=== PATIENT | male | born 1995 | race Caucasian/White ===

== ENCOUNTER 2019-03-04 22:02 | Observation (INO) | payer OTHER ==
[~2019-03-04] VITALS: Ht 170.2 cm; Wt 127.1 kg
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
[2019-03-04 23:32] LABS: WHITE BLOOD COUNT 9.6 10^3/uL (4.3-11.0)
[2019-03-04 23:33] LABS: HEMATOCRIT 47 % (40-54); HEMOGLOBIN 16.2 G/DL (13.3-17.7); MEAN CORPUSCULAR HEMOGLOBIN 30 PG (25-34); MEAN CORPUSCULAR HGB CONC 35 G/DL (32-36); MEAN CORPUSCULAR VOLUME 86 FL (80-99); MEAN PLATELET VOLUME 9.4 FL (7.4-10.4); PLATELET COUNT 255 10^3/uL (130-400); RED CELL DISTRIBUTION WIDTH 13.2 % (10.0-14.5)
[2019-03-04 23:34] LABS: NEUTROPHILS % (AUTO) 51 % (42-75)
[2019-03-04 23:35] LABS: BASOPHILS % (AUTO) 0 % (0-10); EOSINOPHILS # (AUTO) 0.2 10^3/uL (0.0-0.3); EOSINOPHILS % (AUTO) 3 % (0-10); LYMPHOCYTES # (AUTO) 3.6 X 10^3 (1.0-4.0); LYMPHOCYTES % (AUTO) 37 % (12-44); MONOCYTES # (AUTO) 0.9 X 10^3 (0.0-1.0); MONOCYTES % (AUTO) 9 % (0-12); NEUTROPHILS # (AUTO) 4.9 X 10^3 (1.8-7.8)
[2019-03-04 23:39] LABS: BACTERIA,URINE NEGATIVE /HPF; BILIRUBIN,URINE NEGATIVE (NEGATIVE); CLARITY,URINE CLEAR; COLOR,URINE YELLOW; GLUCOSE, URINE (UA) NEGATIVE (NEGATIVE); KETONES,URINE NEGATIVE (NEGATIVE); LEUKOCYTE ESTERASE ,URINE NEGATIVE (NEGATIVE); NITRITE,URINE NEGATIVE (NEGATIVE); PROTEIN,URINE NEGATIVE (NEGATIVE); RBC,URINE 0-2 /HPF; SQUAMOUS EPITHELIAL CELL,UR 0-2 /HPF; UROBILINOGEN,URINE 0.2 MG/DL (NORMAL); WBC,URINE 0-2 /HPF
--- NOTE | 2019-03-04 23:48 | ED Abdominal Pain ---
General Chief Complaint: Abdominal/GI Problems Stated Complaint: ABDOMINAL PAIN Nursing Triage Note: Pt has had abdominal pain since tonight at 1800. Pt stated that it is localized in RUQ/middle upper abdomen that radiates around back to left side. Pt stated he had diarrhea stool this morning, but he thinks that it is related to the drinks he had last night. Pt was alert, oriented and ambulatory at arrival. Sepsis Screen: No Definite Risk Source of Information: Patient History of Present Illness Date Seen by Provider: Mar 04, 2019 Time Seen by Provider: 23:41 Initial Comments 24-year-old male presenting with right-sided abdominal pain. He states that he had similar pain approximately 6-8 months ago and was evaluated. At that time he had labs, CT scan, ultrasound and was told he had gallstones. His pain was finally under control and he was told that he did not need to have his gallbladder out unless he had recurrent symptoms. He has been doing fine until today. He had been drinking alcohol last night and had some diarrhea this morning. He had eaten pizza at lunch time and then had chicken with a salad around 5 PM after all this he started having severe epigastric and right upper quadrant abdominal pain. This is radiating to his right shoulder and upper back. He has had nausea as well. He can not get comfortable and can not get the pain under control. Severity/Quality: Severe Location: RUQ, Epigastric Radiation: Back, Shoulder Allergies and Home Medications Allergies Coded Allergies: azithromycin (Verified Allergy, Unknown, rash, 03/04/19) Patient Home Medication List Home Medication List Reviewed: Yes Review of Systems Review of Systems Constitutional: No chills, No fever; malaise EENTM: No Symptoms Reported Respiratory: No Symptoms Reported Cardiovascular: No Symptoms Reported Gastrointestinal: See HPI, Abdominal Pain, Diarrhea (liquid stool today after drinking alcohol last night), Nausea; Denies Rectal Bleeding, Denies Vomiting Genitourinary: No Symptoms Reported Musculoskeletal: no symptoms reported Skin: no symptoms reported Psychiatric/Neurological: Anxiety Endocrine: No Symptoms Reported Hematologic/Lymphatic: No Symptoms Reported Past Exqqbno-Yvslfd-Rbdiwg Hx Past Med/Social Hx: Reviewed Nursing Past Med/Soc Hx Patient Social History Alcohol Use: Occasionally Uses Recreational Drug Use: No Smoking Status: Current Everyday Smoker Type Used: Cigarettes 2nd Hand Smoke Exposure: No Recent Foreign Travel: No Contact w/Someone Who Travel: No Recent Infectious Disease Expo: No Recent Hopitalizations: No Physical Abuse: No Sexual Abuse: No Mistreated: No Fear: No Seasonal Allergies Seasonal Allergies: No Past Medical History Surgeries: Yes (wisdom teeth) Respiratory: No Cardiac: No Neurological: No Genitourinary: No Gastrointestinal: No Musculoskeletal: No Endocrine: No HEENT: No Cancer: No Psychosocial: Yes Anxiety Blood Disorders: No Physical Exam Vital Signs Vital Signs - First Documented 03/04/19 23:00 Temp 97.0 Pulse 82 Resp 24 B/P (MAP) 159/104 (122) Pulse Ox 98 O2 Delivery Room Air Capillary Refill : Less Than 3 Seconds Height/Weight/BMI Height: 5'7.00" Weight: 260lbs. 0oz. 117.004445bj; BMI Method:Stated General Appearance: WD/WN, moderate distress, obese HEENT: PERRL/EOMI, normal ENT inspection, pharynx normal Neck: non-tender, full range of motion, supple, normal inspection Respiratory: chest non-tender, lungs clear, normal breath sounds, no respiratory distress, no accessory muscle use Cardiovascular: normal peripheral pulses, regular rate, rhythm Gastrointestinal: normal bowel sounds, soft, no pulsatile mass, guarding (ruq ) ; No rebound; tenderness (ruq with positive Gil's sign); No mass Rectal: deferred Extremities: normal range of motion, non-tender, normal inspection Neurologic/Psychiatric: alert, oriented x 3, other (anxious) Skin: normal color, warm/dry Progress/Results/Core Measures Results/Orders Lab Results Laboratory Tests Test 03/04/19 23:25 Range/Units White Blood Count 9.6 4.3-11.0 10^3/uL Red Blood Count 5.42 4.35-5.85 10^6/uL Hemoglobin 16.2 13.3-17.7 G/DL Hematocrit 47 40-54 % Mean Corpuscular Volume 86 80-99 FL Mean Corpuscular Hemoglobin 30 25-34 PG Mean Corpuscular Hemoglobin Concent 35 32-36 G/DL Red Cell Distribution Width 13.2 10.0-14.5 % Platelet Count 255 130-400 10^3/uL Mean Platelet Volume 9.4 7.4-10.4 FL Neutrophils (%) (Auto) 51 42-75 % Lymphocytes (%) (Auto) 37 12-44 % Monocytes (%) (Auto) 9 0-12 % Eosinophils (%) (Auto) 3 0-10 % Basophils (%) (Auto) 0 0-10 % Neutrophils # (Auto) 4.9 1.8-7.8 X 10^3 Lymphocytes # (Auto) 3.6 1.0-4.0 X 10^3 Monocytes # (Auto) 0.9 0.0-1.0 X 10^3 Eosinophils # (Auto) 0.2 0.0-0.3 10^3/uL Basophils # (Auto) 0.0 0.0-0.1 10^3/uL Urine Color YELLOW Urine Clarity CLEAR Urine pH 6.0 5-9 Urine Specific [place] 1.020 1.016-1.022 Urine Protein NEGATIVE NEGATIVE Urine Glucose (UA) NEGATIVE NEGATIVE Urine Ketones NEGATIVE NEGATIVE Urine Nitrite NEGATIVE NEGATIVE Urine Bilirubin NEGATIVE NEGATIVE Urine Urobilinogen 0.2 NORMAL MG/DL Urine Leukocyte Esterase NEGATIVE NEGATIVE Urine RBC (Auto) NEGATIVE NEGATIVE Urine RBC 0-2 /HPF Urine WBC 0-2 /HPF Urine Squamous Epithelial Cells 0-2 /HPF Urine Crystals NONE /LPF Urine Bacteria NEGATIVE /HPF Urine Casts NONE /LPF Urine Mucus NONE /LPF Urine Culture Indicated NO Sodium Level 141 135-145 MMOL/L Potassium Level 3.7 3.6-5.0 MMOL/L Chloride Level 102 98-107 MMOL/L Carbon Dioxide Level 18 L 21-32 MMOL/L Anion Gap 21 H 5-14 MMOL/L Blood Urea Nitrogen 15 7-18 MG/DL Creatinine 0.81 0.60-1.30 MG/DL Estimat Glomerular Filtration Rate > 60 BUN/Creatinine Ratio 19 Glucose Level 98 70-105 MG/DL Calcium Level 9.5 8.5-10.1 MG/DL Corrected Calcium 8.5-10.1 MG/DL Total Bilirubin 0.4 0.1-1.0 MG/DL Aspartate Amino Transf (AST/SGOT) 26 5-34 U/L Alanine Aminotransferase (ALT/SGPT) 53 0-55 U/L Alkaline Phosphatase 51 40-136 U/L Total Protein 7.5 6.4-8.2 GM/DL Albumin 4.7 H 3.2-4.5 GM/DL Lipase 13 8-78 U/L My Orders Allison - CYNDIE العراقي MD Comprehensive Metabolic Panel (03/04/19 23:13) Lipase (03/04/19 23:13) Ua Culture If Indicated (03/04/19 23:13) Saline Lock/Iv-Start (03/04/19 23:13) Cbc With Automated Diff (03/04/19 23:13) Ketorolac Injection (Toradol Injection) (03/05/19 00:00) Ondansetron Injection (Zofran Injectio (03/05/19 00:00) Ns Iv 1000 Ml (Sodium Chloride 0.9%) (03/05/19 00:00) Fentanyl Injection (Sublimaze Injection (03/05/19 00:30) Lorazepam Injection (Ativan Injection) (03/05/19 00:30) Ct Abdomen/Pelvis W (03/05/19 00:24) Iohexol Injection (Omnipaque 350 Mg/Ml 1 (03/05/19 00:30) Ns (Ivpb) (Sodium Chloride 0.9% Ivpb Bag (03/05/19 00:30) Contrast Received (Contrast Received) (03/05/19 00:30) Hydromorphone Injection (Dilaudid Inject (03/05/19 01:45) Ondansetron Injection (Zofran Injectio (03/05/19 02:00) Medications Given in ED Current Medications Medications Dose Ordered Sig/Melina Route Start Time Stop Time Status Last Admin Dose Admin Fentanyl Citrate 50 mcg ONCE ONCE IVP 03/05/19 00:30 03/05/19 00:31 DC 03/05/19 00:39 50 MCG Hydromorphone HCl 1 mg ONCE ONCE IVP 03/05/19 01:45 03/05/19 01:46 DC 03/05/19 01:43 1 MG Iohexol 100 ml ONCE ONCE IV 03/05/19 00:30 03/05/19 00:31 DC 03/05/19 00:43 100 ML Ketorolac Tromethamine 30 mg ONCE ONCE IVP 03/05/19 00:00 03/05/19 00:01 DC 03/04/19 23:58 30 MG Lorazepam 1 mg ONCE ONCE IVP 03/05/19 00:30 03/05/19 00:31 DC 03/05/19 00:39 1 MG Ondansetron HCl 4 mg ONCE ONCE IVP 03/05/19 00:00 03/05/19 00:01 DC 03/04/19 23:58 4 MG Ondansetron HCl 4 mg ONCE ONCE IVP 03/05/19 02:00 03/05/19 03:17 DC 03/05/19 02:05 4 MG Sodium Chloride 50 ml ONCE ONCE IV 03/05/19 00:30 03/05/19 00:31 DC 03/05/19 00:43 50 ML Vital Signs/I&O 03/04/19 23:00 Temp 97.0 Pulse 82 Resp 24 B/P (MAP) 159/104 (122) Pulse Ox 98 O2 Delivery Room Air Blood Pressure Mean: 122 Progress Progress Note #1: Progress Note check labs to look for pancreatitis, hepatitis or signs of infection since he reports similar pains in the fall and was told it was from gallstones. He denies having pain like that until tonight. He had pizza at lunch time without difficulty but then tonight he had a salad and chicken and after supper started having pain. He is also having anxiety. Progress Note #2: Time: 00:15 Progress Note Pt states his pain is still bad and the toradol and zofran have not helped. Will add on Fentanyl 50 mcg and for his anxiety give 1 mg [address] IV. Check CT scan of Abd/Pelvis. His labs all look ok and no elevation of WBC, LFTs or Lipase. Progress Note #3: Time: 01:20 Progress Note No improvement after Fentanyl and still 8/10 pain. Will try Dilaudid and contact Surgery about his symptoms. His CT scan shows gallstones but no pericholecystic fluid or signs of obstruction. Progress Note #4: Time: 01:40 Progress Note Spoke with Dr. Guillen, surgeon conciliator and he accepted the patient for admit. Will transfer to [facility] and have him remain NPO. Continue maintenance fluids and Zofran for nausea, Dilaudid for pain and anticipate surgery later today. Progress Note #5: Time: 03:10 Progress Note Patient waiting on EMS for transport to [place]. He complains of pain starting to increase again. Will repeat Dilaudid 1 mg IV to see if that will calm his symptoms back down for him so that maybe he could rest. Progress Note #6: Time: 04:15 Progress Note EMS available for transport to [facility]. Pt had some improved pain relief after the additional Dilaudid 1 mg but he also did get placed on Oxygen at 1 Lpm by mn to help his oxygen saturation. Diagnostic Imaging Diagonstic Imaging: CT Plain Films/CT/US/NM/MRI: abdomen, pelvis Comments Gallstones in gallbladder without obstruction or pericholecystic fluid. No other acute findings. Reviewed: [facility] ([facility]) Time/Spoke to Admitting Phy: 01:[address] Guillen at 0140 about the admit and he accepted the patient for admission based on findings and continued pain despite repeated pain medicines. Will keep pt NPO and anticipate cholecystectomy later today. Family Conversation Updated pt about plan and treatment. Impression Primary Impression: Cholecystitis, acute with cholelithiasis Qualified Codes: K80.00 - Calculus of gallbladder with acute cholecystitis without obstruction Disposition: ADMITTED INPATIENT Condition: Stable Admissions Decision to Admit Reason: Admit from ER (General) Decision to Admit/Date: Mar 05, 2019 Time/Decision to Admit Time: 01:40 Departure-Patient Inst. Referrals: NO,LOCAL PHYSICIAN (PCP/Family) Primary Care Physician CYNDIE العراقي MD Mar 04, 2019 23:48
[2019-03-04 23:51] LABS: ALANINE AMINOTRANSFERASE 53 U/L (0-55); ALKALINE PHOSPHATASE 51 U/L (40-136); BILIRUBIN,TOTAL 0.4 MG/DL (0.1-1.0); BUN/CREATININE RATIO 19; CALCIUM 9.5 MG/DL (8.5-10.1); CARBON DIOXIDE 18 MMOL/L (21-32); CHLORIDE 102 MMOL/L (98-107); CREATININE SERUM 0.81 MG/DL (0.60-1.30); GFR ESTIMATED > 60; GLUCOSE 98 MG/DL (70-105); POTASSIUM 3.7 MMOL/L (3.6-5.0); SODIUM 141 MMOL/L (135-145)
[2019-03-04 23:52] LABS: ALBUMIN 4.7 GM/DL (3.2-4.5); LIPASE 13 U/L (8-78); TOTAL PROTEIN 7.5 GM/DL (6.4-8.2)
[2019-03-05] MEDS ORDERED: KETOROLAC 30 MG/ML VIAL IVP ONE
[2019-03-05] MEDS ORDERED: LORazepam INJ 2 MG/ML (ATIVAN) VIAL IVP ONE (00:30)
[2019-03-05] MEDS ORDERED: NS 50 ML (IVPB) BAG IV ONE (00:30)
[2019-03-05] MEDS ORDERED: IOHEXOL 350 MG/ML 100 ML (OMNIPAQUE 350) VIAL IV ONE (00:30)
[2019-03-05] MEDS ORDERED: HOLD METFORMIN - RECEIVED CONTRAST 20 ML VIAL IV SCH (00:30)
[2019-03-05] MEDS ORDERED: fentaNYL INJECTION 100 MCG/2 ML AMP IVP ONE ×2 (00:30→01:15)
[2019-03-05] MEDS ORDERED: HYDROmorphone 2 MG/ML VIAL (DILAUDID) IVP ONE ×2 (01:45→03:15)
--- NOTE | 2019-03-05 01:48 | NUR ---
Called House Sup at this time for bed request. Stated he was going to call back with bed assignment.
[2019-03-05] MEDS ORDERED: ONDANSETRON 4 MG/2 ML (SDV) Z0FRAN IVP ONE ×2 (02:00)
--- OUTSIDE RECORDS SUMMARY | 2019-03-05 02:18 | XMS REPORT | Continuity of Care Document ---
[...] R45.851 Suicidal ideations 11/25/2015 TANJIM, SERGIO V [id number] Suicidal TANJIM, SERGIO 11/25/2015 TANJIM, SERGIO V [id number] Suicidal TANJIM, SERGIO 11/25/2015 TANJIM, SERGIO V 577198 Suicidal TANJIM, SERGIO 11/25/2015 TANJIM, SERGIO V 230161 Suicidal TANJIM, SERGIO 11/25/2015 TANJIM, SERGIO V 748872 Suicidal TANJIM, SERGIO 11/25/2015 TANJIM, SERGIO V [id number] Suicidal TANJIM, SERGIO 11/25/2015 TANJIM, SERGIO P F32.9 Major depressive disorder, single episode, unspecified TANJIM, SERGIO 11/25/2015 TANJIM, SERGIO P R45.851 Suicidal ideations TANJIM, SERGIO 11/25/2015 TANJIM, SERGIO V [id number] Suicidal TANJIM, SERGIO 11/25/2015 TANJIM, SERGIO P F32.9 Major depressive disorder, single episode, unspecified TANJIM, SERGIO 11/25/2015 TANJIM, SERGIO P R45.851 Suicidal ideations TANJIM, SERGIO 11/26/2015 TANJIM, SERGIO V [id number] Suicidal TANJIM, SERGIO 11/26/2015 TANJIM, SERGIO P F32.9 Major depressive disorder, single episode, unspecified TANJIM, SERGIO 11/26/2015 TANJIM, SERGIO P R45.851 Suicidal ideations TANJIM, SERGIO 11/26/2015 TANJIM, SERGIO V [id number] Suicidal TANJIM, SERGIO 11/26/2015 TANJIM, SERGIO P F32.9 Major depressive disorder, single episode, unspecified TANJIM, SERGIO 11/26/2015 TANJIM, SERGIO P R45.851 Suicidal ideations TANJIM, SERGIO 11/26/2015 TANJIM, SERGIO V [id number] Suicidal TANJIM, SERGIO 11/26/2015 TANJIM, SERGIO P F32.9 Major depressive disorder, single episode, unspecified TANJIM, SERGIO 11/26/2015 TANJIM, SERGIO P R45.851 Suicidal ideations TANJIM, SERGIO 11/27/2015 TANJIM, SERGIO V [id number] Suicidal TANJIM, SERGIO 11/27/2015 TANJIM, SERGIO P F32.9 Major depressive disorder, single episode, unspecified TANJIM, SERGIO 11/27/2015 TANJIM, SERGIO P R45.851 Suicidal ideations TANJIM, SERGIO 11/27/2015 TANJIM, SERGIO V 088146 Suicidal TANJIM, SERGIO 11/27/2015 TANJIM, SERGIO P F32.9 Major depressive disorder, single episode, unspecified TANJIM, SERGIO 11/27/2015 TANJIM, SERGIO P R45.851 Suicidal ideations TANJIM, SERGIO 11/27/2015 TANJIM, SERGIO V [id number] Suicidal TANJIM, SERGIO 11/27/2015 TANJIM, SERGIO P F32.9 Major depressive disorder, single episode, unspecified TANJIM, SERGIO 11/27/2015 TANJIM, SERGIO P R45.851 Suicidal ideations TANJIM, SERGIO Procedures Code Description [place] [address] Emergency department visit for the evalu KAMILA [...] Status Pt. Type Provider Facility Loc./Unit Complaint [id number] 11/25/2015 00:09:00 11/25/2015 07:21:00 DIS Emergency [facility] ER Mental Health Eval. [id number] 06/26/2015 19:14:00 06/26/2015 22:08:00 DIS Emergency Gavin Crowe Guarantor /person ER Anxiety [id number] 10/23/2014 00:40:54 Document Registration [id number] 01/19/2019 08:40:00 01/19/2019 23:59:59 [facility] Outpatient HECTOR [facility] [id number] 11/25/2015 08:12:00 11/27/2015 15:22:00 DIS Inpatient [id number] 11/25/2015 10:59:28 Document Registration
[2019-03-05 02:25] VITALS: BP 150/88
--- NOTE | 2019-03-05 03:45 | NUR ---
Pt was sleeping and oxygen saturation dropped to 88%, so pt was placed on oxygen 1 liter via nasal canula.
--- NOTE | 2019-03-05 03:46 | NUR ---
Waiting on [facility] EMS to get back in [facility], so they can dispatch other crew to transfer patient.
--- NOTE | 2019-03-05 04:16 | NUR ---
Report given to [facility] at this time. Care was transferred.
[2019-03-05 05:13] VITALS: BP 155/95
--- NOTE | 2019-03-05 05:56 | NUR ---
RUTH SMITH admitted to room 413-1, with an admitting diagnosis of ACUTE CHOLEYCYSTITIS WITH CHOLELITHIASIS, on 03/05/19 from [facility] via [facility], accompanied by EMS STAFF. RUTH SMITH introduced to surroundings, call light, bed controls, phone, TV, temperature control, lights, meal times, smoking policy, visitor policy, side rail policy, bathrooms and showers. Patient Rights given to patient in the handbook.RUTH SMITH verbalizes understanding that [facility] is not responsible for the loss or damage to any personal effects or valuables that are kept in the patients posession during their hospitalization.
[2019-03-05] MEDS ORDERED: ONDANSETRON 4 MG/2 ML (SDV) Z0FRAN IV PRN (06:45)
[2019-03-05] MEDS ORDERED: HYDROmorphone 2 MG/ML VIAL (DILAUDID) IV PRN (06:45)
[2019-03-05] MEDS ORDERED: LORazepam INJ 2 MG/ML (ATIVAN) VIAL IV PRN (06:45)
[2019-03-05] MEDS ORDERED: NS IV 1000 ML 1,000 ML IV SCH ×2 (06:45)
[2019-03-05] MEDS ORDERED: CATHETER FLUSH 10 ML SYR IV PRN (07:00)
--- NOTE | 2019-03-05 08:59 | Diagnostic Imaging Report ---
PROCEDURE: CT abdomen and pelvis with contrast. TECHNIQUE: Multiple contiguous axial images were obtained through the abdomen and pelvis after administration of intravenous contrast. Auto Exposure Controls were utilized during the CT exam to meet ALARA standards for radiation dose reduction. DATE: March 05, 2019. COMPARISON: None. INDICATION: 24-year-old male, right-sided abdominal pain. Diarrhea. FINDINGS: The visualized portions of the lungs are clear. The heart is not enlarged. There is no identified pericardial effusion. There is mild diffuse fatty infiltration of the liver. The outer liver contours are not grossly nodular. There is no identified liver lesion. The main, right, and left portal veins are patent. There are probable gallstones. There is no evidence of acute cholecystitis. There is no biliary ductal dilation. The pancreas is unremarkable in appearance. The spleen is normal in size. The adrenal glands are unremarkable. Unremarkable appearance of the renal parenchyma. The urinary collecting systems are not distended. There is no identified renal or ureteral stone. The urinary bladder is unremarkable in appearance. The liver is normal in size and contour. There is no evidence to suggest acute appendicitis. The appendix is well seen on axial image 60 and adjacent sequential images. There is a fat-containing umbilical hernia. There is no free intraperitoneal air. There is no drainable fluid collection. There is no free pelvic fluid. There is no identified abnormally enlarged lymph node in the abdomen or pelvis which meets CT size criteria for adenopathy. There is no identified acute bony abnormality. IMPRESSION: 1. Diffuse fatty infiltration of the liver. 2. No identified acute abnormality in the abdomen or pelvis. Dictated by: Dictated on workstation # [id number]
[2019-03-05] MEDS ORDERED: MULT1TAB69 PO (10:18)
[2019-03-05] MEDS ORDERED: FLUO20CA42 PO (10:18)
[2019-03-05] MEDS ORDERED: HYDR50CA PO (10:18)
[2019-03-05] MEDS ORDERED: TRAZ-190 PO (10:18)
--- NOTE | 2019-03-05 10:18 | NUR ---
PATIENT LISTED HIS MEDICATIONS AND STRENGTHS TO ME OF WHAT HE TAKES AT HOME. I VERIFIED WHAT HAS BEEN FILLED AT [facility] IN [place]. [facility] FILLED: 02-27-19 FLUOXETINE 20MG DAILY 02-09-19 TRAZODONE 100MG (STATES HE TAKES HS PRN SLEEP) HE ALSO REPORTS TAKING HYDROXYZINE 50MG QID PRN ANXIETY HOWEVER [facility] DID NOT HAVE IT ON FILE. HE ALSO STATES HE TAKES A [employer] OTC DAILY.
[2019-03-07] MEDS ORDERED: HYDR-34 PO (10:32)
[2019-03-07] MEDS ORDERED: morphine INJ 10 MG/ML 1ML (SYR OR VIAL) ONE (15:47)
[2019-03-07] MEDS ORDERED: HYDROmorphone 2 MG/ML VIAL (DILAUDID) ONE (15:47)
[2019-03-07] MEDS ORDERED: SULF1TAB35 PO (16:04)
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
--- NOTE | 2019-03-17 02:57 | DISCHARGE SUMMARY ---
DATE OF SERVICE: SHORT STAY SUMMARY ADMITTING DIAGNOSIS: Symptomatic chronic calculous cholecystitis. DISCHARGE DIAGNOSIS: Symptomatic chronic calculous cholecystitis. PROCEDURE: None. COMPLICATIONS: None. DISPOSITION: Home in stable condition. HOSPITAL COURSE: The patient is a 24-year-old male who presented with right upper abdominal quadrant pain. He reports that for the past 6 to 8 months, he has had intermittent episodes of pain with associated nausea and vomiting, which was associated with eating meals. He had eaten pizza as well as chicken around 5 p.m. and then started to have more significant pain in the right upper abdominal quadrant and presented to the Emergency Department. The patient underwent workup and was found to have gallstones. The patient was scheduled for laparoscopic cholecystectomy; however, after feeling better with bowel rest with clear liquids as well as pain medication, he wanted to be discharged home and proceed with definitive therapy as an outpatient. His vital signs remained stable. His pain was under control and he was afebrile. He was discharged home on 03/05/2019. HOME GOING INSTRUCTIONS: Clear liquid diet. No activity restrictions. He is to follow up in the office in the next several days. Job ID: [id number] DocumentID: [id number] Dictated Date: 03/16/2019 20:27:03 Welding Instructor Date: 03/17/2019 02:57:24 Dictated By: SUNDAY LOZANO MD MTDD
== END 2019-03-05 11:06 | disposition home or self-care (01) ==
LOC: ER FS 22:06 → 4TH 22:07 → UNDOADMOB 03-05 02:13 → 4TH 03-05 02:13 → UNDODISOB 03-05 11:20
PROVIDERS: ADMIT Surgery; ATTEND Surgery
DX: K80.10 Calculus of gallbladder with chronic cholecystitis without obstruction (principal); F17.210 Nicotine dependence, cigarettes, uncomplicated
CPT/HCPCS: 36415; 74177; 80053; 81000; 83690; 85025; 96361; 96374; 96375; 96376; G0378

== ENCOUNTER 2019-03-07 10:12 | Day surgery (SDC) | payer OTHER ==
[~2019-03-07] VITALS: Ht 170.2 cm; Wt 127.1 kg
[~2019-03-07 10:12] MED LIST: FLUO20CA42 PO; HYDR50CA PO; MULT1TAB69 PO; TRAZ-190 PO
--- NOTE | 2019-03-07 10:31 | Progress Note-Pre Operative ---
Pre-Operative Progress Note H&P Reviewed The H&P was reviewed, patient examined and no changes noted. Date Seen by Provider: Mar 07, 2019 Time Seen by Provider: 10: Date H&P Reviewed: Mar 07, 2019 Time H&P Reviewed: :30 Pre-Operative Diagnosis: symptomatic chronic calculous cholecystitis SUNDAY LOZANO MD Mar 07, 2019 10:31
[2019-03-07] MEDS ORDERED: HYDR-34 PO (10:32)
--- NOTE | 2019-03-07 10:33 | Discharge Inst-Surgical ---
D/C Lap Instructions-MARTA Follow Up Appt in 2 weeks Activity as tolerated No driving for 24 hours No driving while on pain medications Incentive Spirometry use every 2 hours while awake Regular Diet Symptoms to Report: Fever over 101 degree F, Nausea/Vomiting Infection Signs and Symptoms to report: Increased redness, Foul odor of wound, Increased drainage Bathing instructions: May shower Operative Area Clean/Dry; Keep incision clean/dry If any problems/questions: Contact your physician or go to Emergency Room SUNDAY LOZANO MD Mar 07, 2019 10:33
--- OUTSIDE RECORDS SUMMARY | 2019-03-07 10:34 | XMS REPORT | Continuity of Care Document ---
[...] R45.851 Suicidal ideations 11/25/2015 TANJIM, SERGIO V [id number] Suicidal TANJIM, SERGIO 11/25/2015 TANJIM, SERGIO V 894435 Suicidal TANJIM, SERGIO 11/25/2015 TANJIM, SERGIO V 506700 Suicidal TANJIM, SERGIO 11/25/2015 TANJIM, SERGIO V 701749 Suicidal TANJIM, SERGIO 11/25/2015 TANJIM, SERGIO V 336776 Suicidal TANJIM, SERGIO 11/25/2015 TANJIM, SERGIO V 781719 Suicidal TANJIM, SERGIO 11/25/2015 TANJIM, SERGIO P F32.9 Major depressive disorder, single episode, unspecified TANJIM, SERGIO 11/25/2015 TANJIM, SERGIO P R45.851 Suicidal ideations TANJIM, SERGIO 11/25/2015 TANJIM, SERGIO V 188002 Suicidal TANJIM, SERGIO 11/25/2015 TANJIM, SERGIO P F32.9 Major depressive disorder, single episode, unspecified TANJIM, SERGIO 11/25/2015 TANJIM, SERGIO P R45.851 Suicidal ideations TANJIM, SERGIO 11/26/2015 TANJIM, SERGIO V 439041 Suicidal TANJIM, SERGIO 11/26/2015 TANJIM, SERGIO P F32.9 Major depressive disorder, single episode, unspecified TANJIM, SERGIO 11/26/2015 TANJIM, SERGIO P R45.851 Suicidal ideations TANJIM, SERGIO 11/26/2015 TANJIM, SERGIO V 358298 Suicidal TANJIM, SERGIO 11/26/2015 TANJIM, SERGIO P F32.9 Major depressive disorder, single episode, unspecified TANJIM, SERGIO 11/26/2015 TANJIM, SERGIO P R45.851 Suicidal ideations TANJIM, SERGIO 11/26/2015 TANJIM, SERGIO V 975196 Suicidal TANJIM, SERGIO 11/26/2015 TANJIM, SERGIO P F32.9 Major depressive disorder, single episode, unspecified TANJIM, SERGIO 11/26/2015 TANJIM, SERGIO P R45.851 Suicidal ideations TANJIM, SERGIO 11/27/2015 TANJIM, SERGIO V 977590 Suicidal TANJIM, SERGIO 11/27/2015 TANJIM, SERGIO P F32.9 Major depressive disorder, single episode, unspecified TANJIM, SERGIO 11/27/2015 TANJIM, SERGIO P R45.851 Suicidal ideations TANJIM, SERGIO 11/27/2015 TANJIM, SERGIO V 880024 Suicidal TANJIM, SERGIO 11/27/2015 TANJIM, SERGIO P F32.9 Major depressive disorder, single episode, unspecified TANJIM, SERGIO 11/27/2015 TANJIM, SERGIO P R45.851 Suicidal ideations TANJIM, SERGIO 11/27/2015 TANJIM, SERGIO V 856807 Suicidal TANJIM, SERGIO 11/27/2015 TANJIM, SERGIO P F32.9 Major depressive disorder, single episode, unspecified TANJIM, SERGIO 11/27/2015 TANJIM, SERGIO P R45.851 Suicidal ideations TANJIM, SERGIO Procedures Code [place] [address] Emergency department visit for the evalu KAMILA [...] Status Pt. Type Provider Facility Loc./Unit Complaint [id number] 11/25/2015 00:09:00 11/25/2015 07:21:00 DIS Emergency [facility] ER Mental Health Eval. [id number] 06/26/2015 19:14:00 06/26/2015 22:08:00 DIS Emergency Gavin Crowe Guarantor /person ER Anxiety [id number] 10/23/2014 00:40:54 Document Registration [id number] 01/19/2019 08:40:00 01/19/2019 23:59:59 [facility] Outpatient [facility] [id number] 11/25/2015 08:12:00 11/27/2015 15:22:00 DIS [id number] 11/25/2015 10:59:28 Document Registration
[2019-03-07] MEDS ORDERED: oxyCODONE/APAP 5/325MG (PERCOCET 5) TABLET PO PRN (10:45)
[2019-03-07] MEDS ORDERED: morphine INJ 10 MG/ML 1ML (SYR OR VIAL) IVP PRN (10:45)
[2019-03-07] MEDS ORDERED: ACETAMINOPHEN 325 MG TABLET PO PRN (10:45)
[2019-03-07] MEDS ORDERED: ceFAZolin 2 GM/50 ML PRE-MIX IVPB IV ONE (10:45)
[2019-03-07] MEDS: LACTATED RINGERS 1,000 ML IV PRN ×2 (10:45→15:30)
[2019-03-07] MEDS ORDERED: ONDANSETRON 4 MG/2 ML (SDV) Z0FRAN IVP PRN (10:45)
[2019-03-07] MEDS ORDERED: MIDAZOLAM 2 MG/2 ML (VERSED) VIAL ONE ×2 (11:28→12:54)
[2019-03-07] MEDS ORDERED: ONDANSETRON 4 MG/2 ML (SDV) Z0FRAN ONE (11:32)
[2019-03-07] MEDS ORDERED: ROCURONIUM 10 MG/ML 5 ML SYRINGE IV ONE ×2 (11:32→14:41)
[2019-03-07] MEDS ORDERED: proPOfol 200 MG/20 ML (DIPRIVAN) VIAL IV ONE (11:32)
[2019-03-07] MEDS ORDERED: fentaNYL INJECTION 100 MCG/2 ML AMP ONE ×2 (11:32→14:11)
[2019-03-07] MEDS ORDERED: LIDOCAINE PF 2% 5 ML (XYLOCAINE) VIAL ONE (11:32)
[2019-03-07] MEDS ORDERED: SEVOFLURANE (ULTANE) 15 ML INHAL SOLN ONE ×8 (11:43→15:45)
[2019-03-07] MEDS ORDERED: DEXAMETHASONE 10 MG/ML (DECADRON) 1 ML VIAL ONE (11:43)
[2019-03-07] MEDS ORDERED: BUP/EPI 0.5% 1:200,000 (SENSORCAINE) 30 ML VIAL ONE (12:29)
[2019-03-07] MEDS ORDERED: MIDAZOLAM 2 MG/2 ML (VERSED) VIAL IVP ONE ×2 (13:00→14:00)
[2019-03-07] MEDS ORDERED: morphine INJ 10 MG/ML 1ML (SYR OR VIAL) IVP ONE (15:30)
[2019-03-07] MEDS ORDERED: HYDROmorphone 2 MG/ML VIAL (DILAUDID) IV ONE (15:30)
[2019-03-07] MEDS ORDERED: NEOSTIGMINE 1 MG/ML 5 ML SYRINGE ONE (15:41)
[2019-03-07] MEDS ORDERED: GLYCOPYRROLATE 0.2 MG/ML (ROBINUL) 2 ML VIAL ONE (15:41)
--- NOTE | 2019-03-07 16:03 | Progress Note-Post Operative ---
Post-Operative Progess Note Surgeon (s)/Systems Analyst (s) Surgeon SUNDAY LOZANO MD Systems Analyst: none Pre-Operative Diagnosis symptomatic chronic calculous cholecystitis Post-Operative Diagnosis acute calculous cholecystitis. Procedure & Operative Findings Date of Procedure 03/07/19 Procedure Performed/Findings laparoscopic cholecystectomy Anesthesia Type GET Estimated Blood Loss Estimated blood loss (mL): minimal Specimens/Packing Specimens Removed gallbladder SUNDAY LOZANO MD Mar 07, 2019 16:03
[2019-03-07] MEDS ORDERED: SULF1TAB35 PO (16:04)
[2019-03-07] MEDS: ONDANSETRON 4 MG/2 ML (SDV) Z0FRAN IVP PRN ×2 (16:13→16:27)
[2019-03-07 16:55] VITALS: BP 130/98
[2019-03-07 17:30] VITALS: BP 129/81
[2019-03-07 18:00] VITALS: BP 117/82
--- NOTE | 2019-03-08 01:54 | OPERATIVE REPORT ---
DATE OF SERVICE: 03/07/2019 PREOPERATIVE DIAGNOSIS: Chronic calculous cholecystitis. POSTOPERATIVE DIAGNOSIS: Acute calculous cholecystitis. PROCEDURE: Laparoscopic cholecystectomy. SURGEON: Sunday Lozano MD ANESTHESIA: General endotracheal. ESTIMATED BLOOD LOSS: Minimal. FINDINGS: Inflamed and dilated gallbladder with gallbladder wall inflammation and multiple stones. DISPOSITION: The patient tolerated the procedure well. INDICATIONS: The patient is a 24-year-old male who has had pain in the right upper abdominal quadrant associated with nausea and diarrhea. He reports that his initial episode was in 08/2018 and has had multiple milder episodes. Approximately four days ago, he did develop a more severe episode and was seen in the Emergency Department and admitted and scheduled for surgery; however, he does have a history of severe generalized anxiety disorder and once he felt better, decided to hold off on surgery. He was seen back in the office and stated that his pain was better, but however, persisted. The natural history of gallbladder disease was explained to the patient including recurrence as well as increased number as well as severity of episodes as well as risk of acute cholecystitis. He is in full understanding of the risks and benefits of surgery and did want to proceed with a laparoscopic cholecystectomy. DESCRIPTION OF PROCEDURE: The patient was brought to the operating room and laid supine on the table. After adequate IV pain and sedating medications and general endotracheal intubation, the abdomen was prepped and draped in standard surgical fashion. A 0.5% Marcaine with epinephrine was then used to anesthetize the overlying skin in the left upper abdominal quadrant and a transverse skin incision made using 15 blade. An 0 silk suture was applied to the medial aspect incision for retraction and a Veress needle inserted with a low opening pressure of 0 mmHg and the abdomen was insufflated to 15 mmHg pressure. The Veress needle removed and a 5 mm Xcel trocar placed followed by a 5 mm 45-degree angle laparoscope visualizing the peritoneal cavity. A 4-quadrant abdominal x-ray was performed. The gallbladder was dilated with gallbladder wall thickening consistent with an acute cholecystitis. There was no abscess formation. Under direct visualization, we then proceeded to place a supraumbilical 10 mm port after the skin and peritoneal lining were anesthetized using 0.5% Marcaine with epinephrine and a transverse skin incision made using 15 blade. In a similar manner, a right upper abdominal quadrant 5 mm port was placed. The patient was then placed in reverse Trendelenburg position as well as plane right side up, left side down. The gallbladder was then decompressed using a laparoscopic needle and suction. The fundus of the gallbladder was then retracted anteriorly and superiorly. The hepatoduodenal ligament was then opened using blunt dissection as well as electrocautery and hook instrument. The entire critical view of safety was identified including the triangle of Calot as well as the cystic duct and artery as the only two structures going into the gallbladder as well as the cystic plate behind the proximal gallbladder. A timeout was then taken and the cystic duct and artery were then clipped proximally, distally and cut with EndoShears. The gallbladder was then dissected off the liver bed using cautery and the hook instrument with visualization of good hemostasis as well as no leaking ducts of Luschka. The gallbladder was removed through the 10 mm port site using EndoCatch bag. The 10 mm port site fascia and peritoneum were then closed under direct visualization using a Helder-Corrie device and an 0 Vicryl suture. The abdomen was desufflated and remaining ports removed. All skin incisions were closed using 4-0 Monocryl running subcuticular sutures. Wounds were then cleaned and covered with Dermabond. The patient tolerated the procedure well. We will start IV and oral pain medications as well as a clear liquid diet. Once he is tolerating clears, has good pain control with oral pain medications, is ambulating well, we will discharge him home. He will be instructed to do no heavy lifting or exertion for the next two weeks. We will also proceed with a Bactrim DS for 5 days b.i.d. Job ID: [id number] DocumentID: [id number] Dictated Date: 03/07/2019 16:02:06 Fitness Worker Date: 03/08/2019 01:54:33 Dictated By: SUNDAY LOZANO MD
== END 2019-03-07 19:20 | disposition home or self-care (01) ==
LOC: SDC 10:12
PROVIDERS: ATTEND Surgery
DX: K80.00 Calculus of gallbladder with acute cholecystitis without obstruction (principal); Z11.2 Encounter for screening for other bacterial diseases; K21.9 Gastro-esophageal reflux disease without esophagitis; F41.9 Anxiety disorder, unspecified; F32.9 Major depressive disorder, single episode, unspecified; Z79.899 Other long term (current) drug therapy; Z88.1 Allergy status to other antibiotic agents; F17.290 Nicotine dependence, other tobacco product, uncomplicated
CPT/HCPCS: 87081